=== PATIENT | male | born 2000 | race Caucasian/White ===

== ENCOUNTER 2021-08-12 15:49 | Emergency (ER) | payer OTHER ==
[2021-08-12 16:29] VITALS: BP 128/77; PULSE 86
== END 2021-08-12 16:42 | disposition home or self-care (01) ==
LOC: VM.ED 15:49
DX: S61.012A Laceration without foreign body of left thumb without damage to nail, initial encounter (principal); W26.8XXA Contact with other sharp object(s), not elsewhere classified, initial encounter
CPT/HCPCS: 12001; 99282-25

== ENCOUNTER 2024-01-25 17:58 | Emergency (ER) | payer OTHER ==
[2024-01-25 18:14] VITALS: BP 149/83; PULSE 76
== END 2024-01-25 18:26 | disposition home or self-care (01) ==
LOC: VM.ED 17:58
DX: S01.01XA Laceration without foreign body of scalp, initial encounter (principal); W26.8XXA Contact with other sharp object(s), not elsewhere classified, initial encounter
CPT/HCPCS: 99282